=== PATIENT | female | born 1965 | race Caucasian/White ===

== ENCOUNTER → 2016-05-06 | Outpatient (CLI) | payer BC ==
--- NOTE | 2016-05-06 16:37 | MAMMOGRAPHY REPORT ---
THIS REPORT HAS BEEN AMENDED. BILATERAL DIGITAL SCREENING MAMMOGRAM WITH CAD: 05/06/2016 CLINICAL HISTORY: Routine screening. Patient has no complaints. TECHNIQUE: Bilateral CC and MLO views were obtained. Current study was also evaluated with a Comput er Aided Detection (CAD) system. COMPARISON: No prior exams were available for comparison. BREAST COMPOSITION: The tissue of both breasts is heterogeneously dense, which may obscure small ma sses. FINDINGS: There is a small grouping of microcalcifications in the approximate 9:00 posterior right breast, for which additional spot magnification views are recommended. 5 mm nodular asymmetry is se en in the far posterior slightly inferior left breast on the MLO view, also warranting additional sp ot compression tomosynthesis views and possibly ultrasound. A 7.4 mm asymmetry is identified in the superior posterior left breast, only seen on the MLO view, also warranting additional spot compress ion to the symphysis views and possibly ultrasound. No focal architectural distortion or other cluster of microcalcifications is seen. A few scattered benign-appearing punctate microcalcifications are seen bilaterally. IMPRESSION: ACR BI-RADS CATEGORY 0: INCOMPLETE EVALUATION: NEED ADDITIONAL IMAGING EVALUATION The small grouping of microcalcifications in the right 9:00 breast and bilateral asymmetries need ad ditional imaging evaluation. The patient will be called to schedule an appointment. Approximately 10% of breast cancers are not detected with mammography. A negative mammographic repor t should not delay biopsy if a clinically suggestive mass is present. Dayna Rangel M.D. ay/:05/06/2016 15:03:23 Database Coordinator: Eliz Henderson, [facility] letter sent: [facility] 0 BI-RADS Code: ACR BI-RADS Category 0: Incomplete Evaluation: Need Additional Imaging Evaluation AMENDMENT: 06/19/2016 Dayna Rangel M.D. Prior outside mammograms from [facility] dated 07/03/2008, 02/14/2010 and 02/25/2012 became available for review. The small grouping of microcalcifications in the approximat e 9:00 posterior right breast are not identified on prior mammograms and therefore additional spot m agnification views are recommended. The 5 mm nodular asymmetry in the posterior inferior RIGHT [address] on the MLO view (in the original screening mammogram report this was misstated as left inferior b reast) is also increasingly conspicuous, although this could represent normal overlapping tissue. A dditionally, the 7.4 mm asymmetry in the superior posterior left, only seen on the MLO view, is incr easingly conspicuous. Additional spot compression tomosynthesis views and possibly ultrasound are r ecommended in the inferior right breast and superior left breast. The patient will be contacted to schedule an appointment. Amended BI-RADS: ACR BI-RADS Category 0: Incomplete Evaluation: Need Additional Imaging Evaluation letter sent: [facility] 0
== END | disposition home or self-care (01) ==
LOC: C.MAMM 09:42
PROVIDERS: ATTEND Family Medicine
DX: Z12.31 Encounter for screening mammogram for malignant neoplasm of breast (principal); N64.89 Other specified disorders of breast

== ENCOUNTER → 2016-06-30 | Outpatient (CLI) | payer BC ==
--- NOTE | 2016-07-01 08:03 | MAMMOGRAPHY REPORT ---
BILATERAL DIGITAL DIAGNOSTIC MAMMOGRAM TOMOSYNTHESIS AND TARGETED BILATERAL ULTRASOUND: 06/30/2016 CLINICAL HISTORY: 51-year-old woman called back from screening mammography for bilateral asymmetries and right breast microcalcifications. TECHNIQUE: Spot magnification CC and ML views of the right breast, spot compression tomosynthesis le ft CC, right MLO and left MLO views were obtained. COMPARISON: Comparison is made to exams dated: 05/06/2016 mammogram - [facility], 02/25/2012 mammogram, and 02/14/2010 mammogram - [facility]. BREAST COMPOSITION: The tissue of both breasts is heterogeneously dense, which may obscure small ma sses. FINDINGS: There is effacement of the nodular asymmetry in the inferior posterior right breast on th e spot compression MLO view. No persistent mass is seen on the corresponding tomosynthesis images. No architectural distortion. There is also effacement of the 7 mm nodular asymmetry in the superio r left breast on the spot compression MLO view including tomosynthesis images. Further evaluation w ith ultrasound was performed bilaterally. In the right breast, there are punctate microcalcificatio ns scattered throughout the breast. However, there is one discrete cluster of punctate microcalcifi cations in the 8:00 to 9:00 middle one third of the breast, measuring 1.5 mm. This was not present on prior available mammograms and is therefore indeterminate. Definitive characterization with tiss ue sampling is recommended. Real-time high-resolution sonographic evaluation was performed in the inferior right breast and supe rior left breast. In the right 6:00 breast, 1 cm from the nipple, there is a small lobulated oval a nechoic cyst measuring 3.0 x 1.8 x 2.9 mm. No other discrete solid or cystic mass is seen throughou t the inferior right breast. In the left 12:00 breast, 1 cm from the nipple, there is an ovoid para llel circumscribed nearly anechoic cystic appearing mass measuring 5.8 mm. Another anechoic cyst is identified in the 1:30 left breast, 5 cm from the nipple, measuring 3.9 mm. No other discrete brandon d or cystic mass is seen in the superior left breast. IMPRESSION: ACR BI-RADS CATEGORY 4B: INTERMEDIATE SUSPICION FOR MALIGNANCY, TARGETED ULTRASOUND ACR BI-RADS CATEGORY 4B: INTERMEDIATE SUSPICION FOR MALIGNANCY 1. Right breast stereotactic guided biopsy is recommended for a new small cluster of punctate micro calcifications in the 9:00 breast. 2. Pending benign pathology results, short interval follow-up bilateral mammograms and possible rep eat ultrasound is recommended to ensure stability of the effacing asymmetries in the inferior right and superior left breast, in which no sonographic correlates were seen, and most likely represent no rmal overlapping fibroglandular tissue. These results and recommendations were discussed with the patient at the time of the exam, She tenta tively scheduled the right breast stereotactic biopsy prior to leaving our department. Approximately 10% of breast cancers are not detected with mammography. A negative mammographic repor t should not delay biopsy if a clinically suggestive mass is present. Dayna Rangel M.D. ay/:06/30/2016 15:51:20 Scrub Tech: Kamini CALLAHAN(Rickie)(Ravi), [facility] letter sent: Abnormal 4/5 BI-RADS Code: ACR BI-RADS Category 4B: Intermediate Suspicion For Malignancy Ultrasound BI-RADS: AC R BI-RADS Category 4B: Intermediate Suspicion For Malignancy
== END | disposition home or self-care (01) ==
LOC: C.MAMM 08:15
PROVIDERS: ATTEND Family Medicine
DX: R92.0 Mammographic microcalcification found on diagnostic imaging of breast (principal)

== ENCOUNTER → 2016-07-14 | Outpatient (CLI) | payer BC ==
--- NOTE | 2016-07-14 13:35 | Discharge Instructions ---
Discharge Instructions Procedure Procedure Date: Jul 14, 2016. Reason for visit: Right Calcs. Discharge Discharge Date: Jul 14, 2016. Discharge Diagnosis: post right breast stereotactic guided biopsy Instructions Activity Recommendations: Additional Limitations (see below) Return to School/Work: no limitations Recommended Home Diet: No Limitations Provider Instructions: ACTIVITY RECOMMENDATIONS: * No lifting, pushing, pulling or exercising the affected side for three days. RETURN TO SCHOOL/WORK: * You may return to work/school after the procedure, but do not perform any strenuous activities for 24 to 48 hours. MEDICATIONS: * Tylenol (two 325 mg) every four to six hours if needed for mild pain (if not allergic to Tylenol). DIET: * Resume previous diet. SPECIAL CARE INSTRUCTIONS: * Keep biopsy site dry for 24 hours. May shower after 24 hours, but do not soak (bathe) incision. * May remove Tegaderm (plastic patch) tomorrow AFTER showering. * Leave the steri-strips on for one week. Allow the steri-strips to fall off by themselves. If not off after one week, you may remove them. You may place a Bandaid crosswise over the strips, if desired. * Apply ice 10 minutes on and 10 minutes off as needed. * Wear a bra at bedtime to sleep more comfortably for 2-3 days. * Your referring physician should have the results after approximately 5 to 7 business days. * Call for unusual bleeding, fever, drainage, etc or if you have any questions call [phone] during normal business hours or after hours call Dr Rangel, . FOLLOW UP VISIT: Follow-up with Referring Physician as scheduled. Mg Randle Recommendations: Call your doctor if: * Temperature above 101 degrees * Pain not relieved by pain medicine ordered * There is increased drainage or redness from any incision * You have any unanswered questions or concerns. Your Doctors Instructions noted above were prepared by provider Dayna Rangel. Patient Signature Section: Patient Instructions Signature Page Gisele Thompson Patient (or Guardian) Signature/Date: I have read and understand the instructions given to me by my caregivers. Caregiver/RN/Doctor Signature/Date: The above-named patient and/or guardian has received patient instructions on this date. + Original Patient Signature Page (only) stays with chart. Please make copy for patient.
--- NOTE | 2016-07-16 07:34 | MAMMOGRAPHY REPORT ---
STEREOTACTIC GUIDED BIOPSY RIGHT BREAST: 07/14/2016 CLINICAL HISTORY: 51-year-old woman with a new indeterminate clustered microcalcifications in the lo wer outer right breast. She presents for stereotactic biopsy. COMPARISON: Comparison is made to exams dated: 06/30/2016 mammogram, 05/06/2016 mammogram - [facility], 02/25/2012 mammogram, 02/14/2010 mammogram, and 07/03/2008 mammogram - [facility]. PATIENT CONSENT: After explaining the risks, benefits and alternatives of the procedure to the patie nt, informed consent was obtained both verbally and in writing. Specific risks include: Bleeding, i nfection, puncture of adjacent structure, nontarget biopsy, sampling error, metal allergy and medica tion reaction. PROCEDURE DESCRIPTION: A time-out was performed and the right breast was confirmed as the site of bi opsy. The patient was placed prone on the stereotactic biopsy table and the breast was placed in lat eralmedial compression. A electric tool repairer image was obtained that demonstrated the clustered microcalcificati ons in question. They are amenable to sterotactic biopsy. Then +15 and -15 stereo pair images wer e obtained. The calcifications were targeted utilizing the coordinates obtained by the computer. Th e skin was prepped with Betadine. 1% Lidocaine with and without epinipherine was administered as loc al anesthesia. A small skin incision was made. Through the incision, the needle was inserted to the depth determined by the computer. 11 samples were obtained using a Tonaraiva 9-gauge vacuum-tatyana coleen biopsy device. The specimen radiograph demonstrated several artists' booking representative microcalcifications, therefore, a metallic marker was placed at the biopsy site. There was no immediate complication. Hem ostasis was achieved after several minutes of manual compression. The samples were sent to [facility] in a single appropriately labeled container. Postprocedure CC and ML views of the right breast demonstrate a new dumbbell-shaped metallic biopsy marker and no significant hematoma in the 8:00 to 9:00 middle one third of the breast, at the site o f the biopsied clustered micro-calcifications in question. Pending benign pathology results, would recommend follow-up bilateral diagnostic mammograms and possible ultrasound to ensure stability of a symmetries seen on the 05/06/2016 screening exam. IMPRESSION: STEREOTACTIC GUIDED BIOPSY Status post right breast stereotactic guided biopsy of a small cluster of microcalcifications in the 8:00 to 9:00 breast, with biopsy marker placed at the site. Pending benign pathology results, follow-up bilateral diagnostic mammograms and possible ultrasound is recommended in 6 months. The patient will receive notification of the biopsy results from her referring physician. Dayna Rangel M.D. ay/:07/14/2016 13:50:38 X Ray Consultant: Eliz CALLAHAN(Rickie)(Ravi), [facility]
--- NOTE | 2016-07-17 08:18 | MAMMOGRAPHY REPORT ---
UNILATERAL RIGHT DIGITAL DIAGNOSTIC MAMMOGRAM: 07/14/2016 CLINICAL HISTORY: Indeterminate clustered microcalcifications in the right lateral breast. Patient presents for stereotactic biopsy. Please refer to report from right breast stereotactic biopsy performed at the same time for full det ail. IMPRESSION: POST PROCEDURE IMAGING FOR MARKER PLACEMENT Please refer to report from right breast stereotactic biopsy performed at the same time for full det ail. Approximately 10% of breast cancers are not detected with mammography. A negative mammographic repor t should not delay biopsy if a clinically suggestive mass is present. Dayna Rangel M.D. ay/:07/14/2016 12:55:45 Guest Request Runner: Eliz Dudley RT(R)(M), [facility] BI-RADS Code: Post Procedure Imaging For Marker Placement
== END | disposition home or self-care (01) ==
LOC: C.MAMM 12:30
PROVIDERS: ATTEND Family Medicine
DX: R92.0 Mammographic microcalcification found on diagnostic imaging of breast (principal)

== ENCOUNTER → 2017-01-20 | Outpatient (CLI) | payer BC ==
--- NOTE | 2017-01-20 14:42 | MAMMOGRAPHY REPORT ---
BILATERAL DIGITAL DIAGNOSTIC MAMMOGRAM TOMOSYNTHESIS WITH CAD: 01/20/2017 CLINICAL HISTORY: 51-year-old woman presents for follow-up in both breasts. She recently underwent s tereotactic guided biopsy in the right breast of a small cluster of punctate microcalcifications, whi ch yielded benign pathology results. She is here to follow up asymmetries in the inferior posterior right breast, and superior left breast. TECHNIQUE: Bilateral CC and MLO 2-D and tomosynthesis images, spot magnification left CC and ML view s were obtained. Current study was also evaluated with a Computer Aided Detection (CAD) system. COMPARISON: Comparison is made to exams dated: 07/14/2016 mammogram, 07/14/2016 stereotactic biopsy, ultrasound, 06/30/2016 mammogram, 05/06/2016 mammogram - [facility], and 02/24 mammogram - [facility]. BREAST COMPOSITION: The tissue of both breasts is heterogeneously dense, which may obscure small mas ses. FINDINGS: There is a stable dumbbell shaped metallic biopsy marker clip in the 9:00 middle to posteri or right breast, denoting the site of prior benign stereotactic guided biopsy. The asymmetry previou sly seen in the superior middle to posterior left breast on the MLO view, and in the inferior posteri or right breast on the MLO view are no longer identified, confirming benignity. No other obvious mas s, focal area of architectural distortion or asymmetry is seen on the current 2-D or tomosynthesis im ages. However, small groupings of microcalcifications are seen in the left breast for which addition al spot magnification views were obtained. The spot magnification views of the left breast demonstrate 2-3 groupings and a few scattered faint p unctate and amorphous microcalcifications in the approximate 11:00, 12:00 and 1:00 axes. When compar ing back to prior full field mammograms, these may have been present on the prior 2008 MLO view, sugg esting benignity. There also similar in morphology to the biopsied cluster in the right breast which yielded benign pathology results. Therefore, they are probably benign but would recommend close fol low-up spot magnification views to document stability, given the slight increased conspicuity. IMPRESSION: ACR-BI-RADS CATEGORY 3: PROBABLY BENIGN 1. There are stable post biopsy changes in the right breast. A previously observed asymmetry in the inferior posterior right breast on the MLO view is no longer seen, confirming benignity. Overall th ere is no mammographic evidence of malignancy, and would recommend follow-up at time of next annual e xam (due May-Jun 2017). 2. An asymmetry is no longer identified in the superior left breast on the MLO view, confirming shefali gnity. However, there are a few similar appearing groupings of punctate and amorphous microcalcifica tions in the 11:00, 12:00 and 1:00 axes of the left breast that are increasingly conspicuous compared to prior mammograms. They may have been present dating back to the 2008 exam, and are similar in ap pearance to the biopsied cluster in the right breast which yielded benign pathology results. Therefo re, would recommend a short interval follow-up left diagnostic mammogram and clinic spot magnificatio n views to ensure stability in 6 months. These results and recommendations were discussed with the patient at the time of the exam. She tenta tively scheduled her follow-up appointment prior to leaving our department. Approximately 10% of breast cancers are not detected with mammography. A negative mammographic report should not delay biopsy if a clinically suggestive mass is present. Dayna Rangel M.D. ay/:01/20/2017 12:25:33 Senior Sas Programmer: Eliz Henderson, [facility] letter sent: Follow Up Recommended 3 BI-RADS Code: ACR-BI-RADS Category 3: Probably Benign
== END | disposition home or self-care (01) ==
LOC: C.MAMM 08:47
PROVIDERS: ATTEND Family Medicine
DX: N64.89 Other specified disorders of breast (principal)

== ENCOUNTER → 2017-06-23 | Outpatient (CLI) | payer BC, OTHER ==
--- NOTE | 2017-06-23 11:01 | DIAGNOSTIC IMAGING REPORT ---
R SHOULDER MIN 2 VIEWS HISTORY: 52 years-old Female ACUTE RIGHT SHOULDER PAIN acute right-sided shoulder pain with recent dislocation COMPARISON: None available TECHNIQUE: 2 views of the right shoulder FINDINGS: Mild degenerative changes of the right AC and glenohumeral joints. There is no acute fracture or dislocation. There is suggestion of a small joint effusion. No Hill Sachs deformity or bony Bankart lesion seen. IMPRESSION: Mild degenerative changes without acute fracture or dislocation. The above report was generated using voice recognition software. It may contain grammatical, syntax or spelling errors. Electronically signed by: Reilly Durand M.D. 06/23/2017 10:59 AM Dictated Date/Time: 06/23/2017 10:58 AM
== END | disposition home or self-care (01) ==
LOC: C.RDSM 10:44
PROVIDERS: ATTEND Family Medicine
DX: M25.519 Pain in unspecified shoulder (principal)

== ENCOUNTER → 2017-07-22 | Outpatient (CLI) | payer OTHER ==
--- NOTE | 2017-07-23 07:51 | MAMMOGRAPHY REPORT ---
BILATERAL DIGITAL DIAGNOSTIC MAMMOGRAM TOMOSYNTHESIS WITH CAD: 07/22/2017 CLINICAL HISTORY: 52-year-old woman presents at time of annual bilateral exam. Also follow-up in bot h breasts of effacing asymmetries in the inferior right breast and superior left breast as well as pr obably benign grouping of microcalcifications in the 12:00 and central left breast. TECHNIQUE: Breast tomosynthesis in addition to standard 2D mammography was performed. Spot magnific ation left CC and MLO views were also obtained. Current study was also evaluated with a Computer Aid ed Detection (CAD) system. COMPARISON: Comparison is made to exams dated: 07/14/2016 mammogram, 06/30/2016 ultrasound, 07/14/2016 s tereotactic biopsy, 01/20/2017 mammogram, 05/06/2016 mammogram, and 06/30/2016 mammogram - [facility]. BREAST COMPOSITION: The tissue of both breasts is heterogeneously dense, which may obscure small mas ses. FINDINGS: The glandular pattern is similar to prior mammograms. There are stable asymmetries in the medial left breast. An asymmetry is no longer seen in the inferior right breast or superior left rashmi ast on the MLO views, confirming benignity. There is a stable dumbbell-shaped biopsy marker clip in the upper outer quadrant of the right breast. The spot magnification views of the left breast redemonstrate a small 1.8 mm grouping of punctate/mely rphous microcalcifications in the 12:00 middle one third of the breast, that appears stable dating ba ck to the spot magnification views performed 01/20/2017, and also likely back to spot compression view s obtained 06/30/2016. With 1 year stability the calcifications are most likely benign, but another 12 month follow-up diagnostic mammogram including spot magnification views is recommended to ensure riri kim stability. A few other smaller scattered and loosely grouped punctate micro calcifications are a lso seen in the superior left breast on the spot magnification ML view, and these findings most likel y represent benign fibrocystic change. IMPRESSION: ACR-BI-RADS CATEGORY 3: PROBABLY BENIGN 1. Stable bilateral mammograms including stable postbiopsy changes in the right breast, and stable l oose groupings of punctate microcalcifications in the 12:00 and central left breast, that most likely represent benign fibrocystic change. However, another 12 month follow-up left diagnostic mammogram including spot magnification views is recommended to ensure longer stability of the calcifications. Annual bilateral screening mammography will also be due at that time. These results and recommendations were discussed with the patient at the time of the exam. Approximately 10% of breast cancers are not detected with mammography. A negative mammographic report should not delay biopsy if a clinically suggestive mass is present. Dayna Rangel M.D. ay/:07/22/2017 12:35:13 Dedicated Regional Driver: Eliz CALLAHAN(Rickie)(M), [facility] letter sent: Follow Up Recommended 3 BI-RADS Code: ACR-BI-RADS Category 3: Probably Benign
== END | disposition home or self-care (01) ==
LOC: C.MAMM 09:04
PROVIDERS: ATTEND Family Medicine
DX: R92.0 Mammographic microcalcification found on diagnostic imaging of breast (principal)